=== PATIENT | male | born 1945 | race Caucasian/White ===

== ENCOUNTER 2022-02-15 07:48 | Emergency (ER) | payer MEDICARE, OTHER, SELFPAY ==
[2022-02-15 07:57] VITALS: BP 129/75; PULSE 72; RESP 18; O2SAT 94; BMI 21.5
--- NOTE | 2022-02-15 08:50 | CRLHL7_ITS ---
For Patients: As a result of the Century Cures Act, medical imaging exams and procedure reports are released immediately into your electronic medical record. You may view this report before your referring provider. If you have questions, please contact your health care provider. INDICATION: Lifelong smoker, cough TECHNIQUE: Chest 1 view COMPARISON: None FINDINGS: Cardiovascular and mediastinum: Heart size and vasculature are normal in caliber and appearance. Lungs and pleural spaces: Lungs are clear. No sign of infiltrate or mass. No sign of pleural effusion. No pneumothorax. Bones and soft tissues: No significant findings. IMPRESSION: No acute findings. Dictated by Lucius Bull MD @ 02/15/2022 9:14:28 AM (Electronically Signed)
--- NOTE | 2022-02-15 08:51 | ED.GENADULT ---
HPI - General Adult General Chief complaint: Cough Stated complaint: shortness of breath/mucus in throat/not congestion Time Seen by Provider: 02/15/22 08:18 History of Present Illness HPI narrative: 76-year-old man presenting to the emergency department accompanied by spouse with complaint of cough. He will get these coughing fits that might be productive of colorless mucus occasionally greater or yellow. He has a deposit in the sink for me to examine. It is thick yellowish snot. He has been feeling unwell over the last 4 days. First thing he says to me though is ?it's not a pulmonary problem. It is an ENT issue?. He does not have a relationship with ENT. He notes a history of some chronic postnasal drip. Does not believe he has allergies. He does smoke and has for sounds like life time having been in the [place]. He has not had a fever but a few days ago had some body aches. He does not have any chest pain is not short of breath outside of coughing episodes. He started to have some pain along the rib edge she thinks from coughing. He is unable to sleep and ?running out of gas?. He continues to sleep flat. Has not tried elevating his head. They have tried [id number] treatments in the form of guaifenesin and 1 dose of something that might have contained pseudoephedrine. They have also tried cold and cough daytime medication. He has become allergic now. Spouse on the side mentions to me that his brother is younger brother this last week. They were quite close she says did receive COVID vaccine and has been boosted. He is wondering if there might be a super antihistamine that might be helpful. No facial pain or sinus congestion. More on the side the discusses, emphasizes that contrary to what Mr. Gill were the had been telling me difficulty swallowing pills is a new phenomenon. He does have trouble with swallowing sometimes. Also not exclusive to the last 4 days. That with this coughing he has also been having some upper chest burning which he denied to me today. Related Data Previous Rx's Medication Instructions Recorded benzonatate 200 mg capsule 200 mg PO TID cough #15 caps 02/15/22 prednisone 20 mg tablet 40 mg PO DAILY 5 days #10 tabs 02/15/22 Allergies Allergy/AdvReac Type Severity Reaction Status Date / Time No Known Drug Allergies Allergy Verified 02/15/22 07:57 Review of Systems Status of ROS: Reports: 10 or more systems reviewed and unremarkable except as noted in History and below PFSH PFS Social History Smoking Status: Current every day smoker What tobacco products do you use: cigarettes Smoking packs per day: 0.75 Smoking cigarettes per day: 15.0 Years smoked: 60 Smoking pack-years: 45.00 Do you use any of these nicotine containing products: None Second hand tobacco smoke exposure: No How often do you have a drink containing alcohol: 2-4 times a month How many standard drinks containing alcohol do you have on a typical day: 1 or 2 How often do you have six or more drinks on one occasion: Never AUDIT-C Alcohol total score: 2 Non-prescribed substance use: denies use service: Yes Exam Narrative: Exam Narrative: Pleasant. Talkative. NAD. Lightly bearded Speaking full sentences. Voice is laryngitic Lungs are clear. A few times during interview does go to the sink lean over it and cough some small productive mucus. He is breathing easily otherwise. Oropharynx is hyperemic. There is some irritation of posterior oropharynx but not as one might expect with chronic postnasal drip or allergic related postnasal drip. Neck is supple without LA. Cardiovascular was regular rate and rhythm. Extremities are without edema. Moving all extremities without difficulty. Const: Vital Signs, click to edit/add: Vital Signs - 24 hr 02/15/22 07:57 Pulse Rate [Pulse Oximeter] 72 Respiratory Rate 18 Blood Pressure [Ri ght Upper Arm] 129/75 Pulse Oximetry 94 Oxygen Delivery Me thod Room Air Documenting provider has reviewed patient's vital signs: yes Course Vital Signs Vital signs: Initial Vital Signs Temperature Source Temporal Artery Scan 02/15/22 07:57 Pulse Rate 72 02/15/22 07:57 Pulse Rhythm 02/15/22 07:57 Respiratory Rate 18 02/15/22 07:57 Blood Pressure 129/75 02/15/22 07:57 Blood Pressure Mean 93 02/15/22 07:57 Pulse Oximetry 94 02/15/22 07:57 Oxygen Delivery Method 02/15/22 07:57 Vital Signs Pulse Rate 72 02/15/22 07:57 Respiratory Rate 18 02/15/22 07:57 Blood Pressure 129/75 02/15/22 07:57 Pulse Oximetry 94 02/15/22 07:57 Oxygen Delivery Method 02/15/22 07:57 Pulse Rate 72 02/15/22 07:57 Respiratory Rate 18 02/15/22 07:57 Blood Pressure 129/75 02/15/22 07:57 Pulse Oximetry 94 02/15/22 07:57 Oxygen Delivery Method 02/15/22 07:57 Medical Decision Making MDM Narrative Medical decision making narrative: one view chest x-ray. I did review images. No evidence of acute cardiopulmonary disease. Radiology also reviewed. No mention of any concerning nodule either. COVID negative. Lab Data Labs: Lab Results 02/15/22 Range/Units 08:10 SARS-CoV-2 (PCR) Negative SARS-CoV-2 (Negative) Influenza Type A (PCR) Negative PCR FLU A (Negative) Influenza Type B (PCR) Negative PCR FLU B (Negative) Discharge Plan Discharge Clinical Impression: History of postnasal drip, Cough, Laryngitis Patient Disposition: Home w/ Parent or Adult Condition: Stable Additional Instructions: Continue to focus on hydration. Try to get in your 2-3 L of fluid daily. Might try menthol vapors. Anesthetic throat sprays or lozenges like Chloraseptic or Sucrets [id number] might be helpful. Sucking on ice chips might be helpful. Sleep with head of bed elevated. Pseudoephedrine can be helpful for drying and decongestion. Diphenhydramine can be drying in with a side effect of helping with sleep. So potential sedation and urinary retention as side effects. Return/be seen for persistent increased rate/work of breathing, associated fever, lightheadedness, worsening chest pain. Follow-up if not improved in 7-10 days. Prescriptions: New prednisone 20 mg tablet 40 mg PO DAILY 5 Days Qty: 10 0RF benzonatate 200 mg capsule 200 mg PO TID Qty: 15 0RF Follow Up/Referrals: Farhana Orellana MD [Primary Care Provider] - Stand Alone Forms: [employer] Info Instructions
[2022-02-15 09:02] LABS: PCR FLU A Negative PCR FLU A (Negative); PCR FLU B Negative PCR FLU B (Negative)
[2022-02-15 09:04] LABS: SARS PCR* Negative SARS-CoV-2 (Negative)
== END 2022-02-15 10:11 | disposition home or self-care (01) ==
PROVIDERS: Family Medicine; Emergency Provider Family Medicine; PCP Family Medicine
DX: J04.0 Acute laryngitis (principal)
CPT/HCPCS: 71045; 87631; 99284

== ENCOUNTER 2024-06-27 17:01 | Emergency (ER) | payer MEDICARE, OTHER, SELFPAY ==
[2024-06-27] VITALS (21 sets, daily range): BP systolic 89–125; BP diastolic 54–72; PULSE 73–106; RESP 24–32; TEMP 37.6–38.7; O2SAT 85–93; BMI 20.8
--- OUTSIDE RECORDS SUMMARY | 2024-06-27 17:03 | XMS_ITS | Clinical Summary ---
Author Organization [employer] [facility] Address [place], [place] [address] Care Team Providers Care Controlled Atmospheric Furnace Brazer Name Role Phone Farhana Orellana MD Primary Care Provider + Allergies No known active allergies Medications pseudoephedrine (SUDAFED) 30 mg tablet Take 1 Tablet (30 mg) by mouth every 6 hours if needed for Nasal Congestion. 20 Tablet 2 Active benzonatate (TESSALON) 200 mg capsuleIndicatio ns:Productive cough Take 1 Capsule (200 mg) by mouth 3 times daily if needed for Cough. 30 Capsule 5 5 Active predniSONE (DELTASONE) 50 mg tab tabletIndication s:Productive cough One po QAM as needed symptoms. 10 Tablet 5 Active cholecalciferol (Vitamin D-3) 2,000 unit capsule Take 1 Capsule (2,000 units) by mouth once daily. 0 2 06/27/19 25 Discontinu ed(*Med complete/R egimen complete/L evel of care change) codeine-guaiFENe sin (ROBITUSSIN AC) 10-100 mg/5 mL liquidIndication s:Cough, unspecified type Take 5-10 mL by mouth every 6 hours if needed for Cough. Max dose 60 mL per 24 hrs. 200 mL 3 06/27/19 25 Discontinu ed(*Med complete/R egimen complete/L evel of care change) benzonatate (TESSALON) 200 mg capsuleIndicatio ns:Productive cough Take 1 Capsule (200 mg) by mouth 3 times daily if needed for Cough. 30 Capsule 3 06/27/19 25 Discontinu ed(*Med complete/R egimen complete/L evel of care change) Active Problems Problem Noted Date Diagnosed Date History of colon polyps 08/24/2021 Overview (04/30/2022): -1 5 mm polyp. 07/2021-positive cologuard. Colonoscopy showed 2 21-25 mm polyps. Repeat 01/2022. History of COVID-19 07/23/2021 Overview (07/23/2021): CKD (chronic kidney disease) stage 3, GFR 30-59 ml/min 07/23/2021 Overview (07/23/2021): 1st noted to abnormal kidney function in teen years. 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 [place] [id number] Thang Hickman MD Weak; URI 06/27/2024 Travel from Last 3 Months Immunizations Name Administration Dates Next Due COVID-19 vaccine (Lazaro-J&J) DAGOBERTO VILLAGRAN 1 Pneumococcal Poly,23-Valent (Pneumovax) 07/24/19 22 Pneumococcal conj 13-Valent (Prevnar 13) 016 Tdap 11/14/2012 Family History Medical History Relation Name Comments Good Health Brother Lung cancer Father Cancer Half-Brother 1 throat Other Half-Brother 1 multi sensory atrophy Stroke Mother in her 80's Cancer-breast Sister Relation Name Status Comments Brother Alive Father Half-Brother 1 Alive Half-Brother 2 Alive Half-Brother 3 Alive Half-Brother 4 Alive Mother Sister Alive Social History Tobacco Use Types Packs/Day Years Used Date Smoking Tobacco: Every Day Cigarettes 0.5 40 Smokeless Tobacco: Never Tobacco Cessation:Ready to Q uit: No; Counseling Given: Yes Alcohol Use Standard Drinks/Week Comments Yes 0 (1 standard drink = 0.6 oz pur e alcohol) 3-4 drinks/month PHQ-2 Answer Date Recorded PHQ-2 TOTAL SCORE 0 07/23/2021 Financial Resource Strain Answer Date R ecorded Difficulty of Paying Living Expenses Not on file 06/10/2021 Difficulty of Paying Living Expenses Not on file 06/10/2021 Sex and Gender Information Value Date Recorded Sex Assigned at Not on file Legal Sex Male 7:32 AM HVAC DESIGN MECHANICAL ENGINEER Gender Identity Not on file Sexual Orientation Not on file Obstetrics History Last Filed Vital Signs Vital Sign Reading Time Taken Comments Blood Pressure 101/56 06/27/2024 4:11 PM HVAC DESIGN MECHANICAL ENGINEER Pulse 107 06/27/2024 4:11 PM HVAC DESIGN MECHANICAL ENGINEER Temperature 38 C (100.4 F) 06/27/2024 4:11 PM HVAC DESIGN MECHANICAL ENGINEER Respiratory Rate 28 06/27/2024 4:11 PM HVAC DESIGN MECHANICAL ENGINEER Oxygen Saturation 91% 06/27/2024 4:11 PM HVAC DESIGN MECHANICAL ENGINEER Inhaled Oxygen Concentration - - Weight 67.6 kg (149 lb 1.6 oz) 06/27/2024 4:11 P M HVAC DESIGN MECHANICAL ENGINEER Height 176.5 cm (5' 9.5) 06/29/2022 7:54 AM HVAC DESIGN MECHANICAL ENGINEER Body Mass Index 21.7 06/29/2022 7:54 AM HVAC DESIGN MECHANICAL ENGINEER Plan of Treatment Health Maintenance Due Date Last Done Comments Low Dose CT (for lung CA) ag e 50-80 09/11/1997 Zoster (shingles) series for age 50+ (1 of 2) 09/11/1997 Depression screening for age 12+ 07/23/2022 07/23/2021, 06/10/2021, 06/10/2021, Additional history exists Medicare Wellness for age 65+ 07/24/2022 07/23/2021 RSV vaccine for adults or (1 - 1-dose 75+ series) 09/11/2022 Tetanus booster 11/14/2022 11/14/2012 BMI (ht and wt on same day) for age 18+ 06/29/2023 06/29/2022, 02/19/2022, 07/23/2021, Additional history exists COVID-19 vaccine series ( season) 2024 04/07/2021, 08/02/2020 Influenza for age 65+ 01/22/2024 Tdap Completed 11/14/2012 Hepatitis C screening for ag e 18-79 Completed 07/23/2021 Pneumococcal series for age 50+ Completed , 02/19/2016 Procedures Procedure Name Priority Date/Time Associated Diagnosis Comments ANTI HCV Routine 07/23/2021 11:00 AM HVAC DESIGN MECHANICAL ENGINEER Need for hepatitis C screening test from Last 3 Months or Most Recently Relevant to Health Maintenance Results * ANTI HCV (07/23/2021 11:00 AM HVAC DESIGN MECHANICAL ENGINEER) HEPATITIS C ANTIBODY Non-React paco Non-React paco 07/24/2021 1:10 AM HVAC DESIGN MECHANICAL ENGINEER [email or web address] Comment:Antibodies to HCV no t detected; does not exclude the possibility of exposure to HCV. Blood BLOOD SPECIMEN / Unknown Venipuncture / Unknown 07/23/2021 11:00 AM HVAC DESIGN MECHANICAL ENGINEER 07/23/2021 11:06 AM HVAC DESIGN MECHANICAL ENGINEER us Farhana Orellana MD SEND OUTS Final Re sult [email or web address] [address] [place] [address], [place] from Last 3 Months or Most Recently Relevant to Health Maintenance Insurance [employer] MEDICARE [place] ONLY Care Teams Controlled At[employer]heric Furnace Brazer Relationship Specialty [place] [address] [place] [address] PCP - General Family Practice 06/10/21
--- NOTE | 2024-06-27 17:27 | ED.GENADULT ---
HPI - General Adult General Chief complaint: Fever Stated complaint: low oxygen level, weakness Time Seen by Provider: 06/27/24 17:15 History of Present Illness HPI narrative: Patient here with viral like symptoms starting Tuesday . Hasn't slept or ate well. Started vomiting today. Weakness, cough. Took mucinex and tesslon pearle prior to coming in. 78-year-old man presenting to the emergency department with concern of weakness. Was kind of wobbly but he clearly denies feeling lightheaded or being dizzy. Has been sick over the last 3 days. Fever itch. Vomiting today. Notes a history of rather intense gag reflex and chronic postnasal drip but it sounds the vomiting was unrelated to this. Did try to ever to get some fluid intake of his usual ice tea and that is apparently when he vomited. Treated with Mucinex and some residual Tessalon Perles. Maybe is feeling a little short of breath. He is a 60 year smoker. Does not get regular medical care. Does not have a COPD diagnosis at least. No medications. No abdominal pain although has some right low rib discomfort with coughing intermittently. No chest pain otherwise. Blood pressure is noted to be a little low on arrival at 89/58. Review of records shows that this is not baseline. Next blood pressure though done while I am still interviewing is 112 systolic Related Data Home Medications ?Medication ?Instructions ?Recorded ?Confirmed No Known Home Medications 06/27/24 06/27/24 Allergies Allergy/AdvReac Type Severity Reaction Status Date / Time No Known Drug Allergies Allergy Verified 02/15/22 07:57 Review of Systems Status of ROS: Reports: 6 or more systems reviewed and unremarkable except as noted in History and below [facility] Social History Smoking Status: Current every day smoker What tobacco products do you use: cigarettes Smoking packs per day: 1 Smoking cigarettes per day: 20.0 Years smoked: 60 Smoking pack-years: 60.00 Do you use any of these nicotine containing products: None Second hand tobacco smoke exposure: No How often do you have a drink containing alcohol: 2-4 times a month How many standard drinks containing alcohol do you have on a typical day: 1 or 2 How often do you have six or more drinks on one occasion: Never AUDIT-C Alcohol total score: 2 Non-prescribed substance use: denies use service: Yes Exam Narrative: Exam Narrative: Pleasant. Actually pretty alert. Cranial nerves 2-12 intact. Pupils are equal and brisk. There is some tobacco or smoke staining of his mustache. Oropharynx is sticky. Lungs with diminished breath sounds sound to be clear. Is not labored in breathing. Appears quite comfortable. Heart in elevated rate and regular rhythm. Abdomen is soft and nontender. Extremities are without edema. He appears to be well-perfused. Const: Vital Signs, click to edit/add: Vital Signs - 24 hr 06/27/24 17:12 06/27/24 17:47 06/27/24 18:05 Temperature 101.6 F H Pulse Rate 101 H 93 Pulse Rate [Pulse Oximeter] 95 Respiratory Rate 24 Blood Pressure Blood Pressure [Ri ght Upper Arm] 89/58 L Pulse Oximetry 90 89 86 L Oxygen Delivery Me thod Room Air Room Air Oxygen Flow Rate 06/27/24 18:08 06/27/24 18:09 06/27/24 18:15 Temperature Pulse Rate 97 93 Pulse Rate [Pulse Oximeter] Respiratory Rate Blood Pressure 125/72 Blood Pressure [Ri ght Upper Arm] Pulse Oximetry 85 L 86 L 88 Oxygen Delivery Me thod Room Air Room Air Nasal Cannula Oxygen Flow Rate 1 06/27/24 18:15 06/27/24 18:16 06/27/24 18:30 Temperature 99.7 F H Pulse Rate 93 98 Pulse Rate [Pulse Oximeter] Respiratory Rate Blood Pressure Blood Pressure [Ri ght Upper Arm] Pulse Oximetry 88 93 Oxygen Delivery Me thod Nasal Cannula Nasal Cannula Oxygen Flow Rate 1 1 06/27/24 18:45 06/27/24 18:54 06/27/24 19:00 Temperature Pulse Rate 92 106 H Pulse Rate [Pulse Oximeter] Respiratory Rate 32 H Blood Pressure Blood Pressure [Ri ght Upper Arm] Pulse Oximetry 90 89 Oxygen Delivery Me thod Nasal Cannula Nasal Cannula Oxygen Flow Rate 1 1 06/27/24 19:01 06/27/24 20:01 06/27/24 20:02 Temperature Pulse Rate 97 95 99 Pulse Rate [Pulse Oximeter] Respiratory Rate Blood Pressure 124/71 117/66 Blood Pressure [Ri ght Upper Arm] Pulse Oximetry 89 90 89 Oxygen Delivery Me thod Nasal Cannula Oxygen Flow Rate 1 06/27/24 20:15 06/27/24 20:30 06/27/24 20:45 Temperature Pulse Rate 99 101 H 99 Pulse Rate [Pulse Oximeter] Respiratory Rate Blood Pressure Blood Pressure [Ri ght Upper Arm] Pulse Oximetry 88 88 91 Oxygen Delivery Me thod Oxygen Flow Rate 06/27/24 21:00 06/27/24 21:01 06/27/24 21:15 Temperature Pulse Rate 92 95 94 Pulse Rate [Pulse Oximeter] Respiratory Rate Blood Pressure 102/54 L Blood Pressure [Ri ght Upper Arm] Pulse Oximetry 88 86 L 90 Oxygen Delivery Me thod Oxygen Flow Rate 06/27/24 21:30 Temperature Pulse Rate 73 Pulse Rate [Pulse Oximeter] Respiratory Rate Blood Pressure Blood Pressure [Ri ght Upper Arm] Pulse Oximetry 89 Oxygen Delivery Me thod Oxygen Flow Rate Documenting provider has reviewed patient's vital signs: yes Course Vital Signs Vital signs: Initial Vital Signs Temperature 101.6 F H 06/27/24 17:12 Temperature Source Temporal Artery Scan 06/27/24 17:12 Pulse Rate 95 06/27/24 17:12 Respiratory Rate 24 06/27/24 17:12 Blood Pressure 89/58 L 06/27/24 17:12 Blood Pressure Mean 68 L 06/27/24 17:12 Blood Pressure Position Sitting 06/27/24 17:12 Pulse Oximetry 90 06/27/24 17:12 Oxygen Delivery Method Room Air 06/27/24 17:12 Vital Signs Temperature 101.6 F H 06/27/24 17:12 Pulse Rate 95 06/27/24 17:12 Respiratory Rate 24 06/27/24 17:12 Blood Pressure 89/58 L 06/27/24 17:12 Pulse Oximetry 90 06/27/24 17:12 Oxygen Delivery Method Room Air 06/27/24 17:12 Temperature 99.7 F H 06/27/24 18:16 Pulse Rate 73 06/27/24 21:30 Respiratory Rate 32 H 06/27/24 18:54 Blood Pressure 102/54 L 06/27/24 21:01 Pulse Oximetry 89 06/27/24 21:30 Oxygen Delivery Method Nasal Cannula 06/27/24 19:01 Oxygen Flow Rate 1 06/27/24 19:01 Medications Administered Medications: Discontinued Medications Generic Name Dose Route Start Last Admin Trade Name Freq PRN Reason Stop Dose Admin Albuterol/Ipratropium 1 neb 06/27/24 19:31 06/27/24 19:35 Iprat-Albut 0.5-2.5 Mg/3 Ml Neb IH 06/27/24 19:32 1 neb ONCE ONE Administration Sodium Chloride 1,000 mls @ 1,000 mls/hr 06/27/24 17:45 06/27/24 19:22 0.9 % Sodium Chloride 1000 Ml IV 06/27/24 18:44 Infused .Q1H ONE Infusion Sodium Chloride 1,000 mls @ 1,000 mls/hr 06/27/24 19:53 06/27/24 20:38 0.9 % Sodium Chloride 1000 Ml IV 06/27/24 20:52 Infused .Q1H ONE Infusion Ibuprofen 600 mg 06/27/24 20:14 06/27/24 20:30 Ibuprofen 200 Mg Tablet PO 06/27/24 20:15 600 mg ONCE ONE Administration Methylprednisolone Sodium Succinate 80 mg 06/27/24 19:53 06/27/24 20:02 Methylprednisolone Sod Succ 62.5 Mg/Ml (125) IVP 06/27/24 19:54 80 mg ONCE ONE Administration Ondansetron HCl 4 mg 06/27/24 17:45 06/27/24 18:06 Ondansetron 2 Mg/Ml Inj IVP 06/27/24 17:46 4 mg ONCE ONE Administration Medical Decision Making MDM Narrative Medical decision making narrative: With initial vitals including fever, which I would repeat as initial temporal scan done with stocking cap having been in place, with low blood pressure would have concern about sepsis. Blood culture has been collected. Monitor closely. IV hydration. Ibuprofen. Presuming influenza A contributing given community prevalence and this swab is pending. No abdominal pain to suggest imaging at this time. Pleural effusion? Suspect some combination of COPD exacerbation Checking again oximetry drops to 85% room air. Baseline oximetry or least from visit a couple of years ago looks to be about 94%. Placed on nasal cannula. Chest x-ray independently reviewed by me looks to be unremarkable. Was not ever wheezy on auscultation however was ordered for a DuoNeb. Also given IV Solu-Medrol. Oxygenation did improve to low-mid 90s. Labs with mildly elevated white count. VBG is reassuring/unremarkable. But sodium was 129. Able to locate old records from some years ago where sodium was in the 140s. CRP today at a 0.1 Influenza a positive Reviewing again history it may be the ice tea that drinks regularly might be contributing. Also has not been eating very well over the last few days. Only 1 episode of vomiting this morning. Received a total 2 L of normal saline in the emergency department. Diaphoretic. Fever broke. Remained quite alert and without notable distress during time in the emergency department. No other evidence for sepsis. Ambulated and oxygen saturations did not drop below 90 and ambulated steadily. He would like to go home. I had initially been anticipating admission but this does not appear to be an unreasonable request at this time. Cannot arrange for oxygen or nebulizer at this time. Albuterol inhaler is available in [facility]. Will continue course of prednisone and though it may be a little late, Tamiflu. See patient discharge plan for further discussion I suspect you do have some degree of COPD. It would be a good idea to quit smoking; sounds like you have already done that at least over the last 2 days so keep it up! :) I think following up for pulmonary function testing would be good to direct lung saving/salvaging treatment. Am prescribing Tamiflu and a course of prednisone from [facility]. Albuterol also if you seem to be wheezy. Four days of the prednisone should be sufficient. You do not need to take a course of prednisone tonight but do start the Tamiflu. It would be a good idea to follow-up in a few weeks to recheck labs considering your sodium was newly low. I wonder if your iced tea drinking might be contributing. Consider reconstituting powdered Powerade or Gatorade as an electrolyte drink now at least while you are ill. Return for oxygen saturations at rest persistently 88% or lower, persistent increasing shortness of breath, inability to control fever, repeated vomiting, worsening weakness. Can take up to 600 mg of ibuprofen or up to 850 mg of acetaminophen per dose. This can be combined. Do treat your fever. Medical Records Medical records reviewed: Yes I reviewed the patient's medical records Lab Data Lab results reviewed: Yes I reviewed the patient's lab results Labs: Lab Results 06/27/24 06/27/24 Range/Units 17:33 17:52 WBC 12.38 H (4.50-11.00) K/uL RBC 5.71 (4.30-5.90) m/uL Hgb 16.9 (13.5-17.5) gm/dL Hct 50.0 (37.0-53.0) % MCV 88 (80-100) fL MCH 30 (26-34) pg MCHC 34 (32-36) gm/dL RDW Coeff of Lynn 13.5 (11.5-15.5) % Plt Count 161 (140-440) K/uL Neut % (Auto) 90.1 H (42.0-72.0) % Lymph % (Auto) 2.3 L (20-44) % Elk % (Auto) 7.0 (0.0-11.0) % Eos % (Auto) 0.0 (0.0-7.0) % Baso % (Auto) 0.2 (0.0-3.0) % Neut # (Auto) 11.20 H (1.7-7.0) K/uL Lymph # (Auto) 0.30 L (0.90-2.90) K/uL Elk # (Auto) 0.90 (0.00-0.90) K/UL Eos # (Auto) 0.00 (0.00-0.50) K/uL Baso # (Auto) 0.00 (0.00-0.30) K/uL Abs Immat Gran (auto) 0.00 (0.00-0.30) K/uL Imm/Tot Granulo (auto) 0.4 % VBG pH 7.393 (7.32-7.43) VBG pCO2 40 (40-50) mmHG VBG pO2 31.8 (25-47) mmHG VBG HCO3 24 (21-28) mmol/L Sodium 129 L (135-149) mmol/L Potassium 4.1 (3.6-5.1) mmol/L Chloride 99 (96-114) mmol/L Carbon Dioxide 22 (20-32) mmol/L Anion Gap 8 (7-15) mEq/L BUN 14 (7-30) mg/dL Creatinine 1.4 (0.5-1.5) mg/dL Estimated Creat Clear 40.61 Estimated GFR 52 ml/min Glucose 146 H (60-115) mg/dL Calcium 8.2 L (8.4-10.6) mg/dL C-Reactive Protein 8.1 H (0.5-1.0) mg/dL SARS-CoV-2 (PCR) Negative SARS-CoV-2 (Negative) Influenza Type A (PCR) POSITIVE PCR FLU A A (Negative) Influenza Type B (PCR) Negative PCR FLU B (Negative) RSV (PCR) Negative PCR RSV (Negative) Discharge Plan Discharge Clinical Impression: Influenza A, Hyponatremia, Hypoxia Patient Disposition: Home w/ Parent or Adult Condition: Improved Additional Instructions: I suspect you do have some degree of COPD. It would be a good idea to quit smoking; sounds like you have already done that at least over the last 2 days so keep it up! :) I think following up for pulmonary function testing would be good to direct lung saving/salvaging treatment. Am prescribing Tamiflu and a course of prednisone from [facility]. Albuterol also if you seem to be wheezy. Four days of the prednisone should be sufficient. You do not need to take a course of prednisone tonight but do start the Tamiflu. It would be a good idea to follow-up in a few weeks to recheck labs considering your sodium was newly low. I wonder if your iced tea drinking might be contributing. Consider reconstituting powdered Powerade or Gatorade as an electrolyte drink now at least while you are ill. Return for oxygen saturations at rest persistently 88% or lower, persistent increasing shortness of breath, inability to control fever, repeated vomiting, worsening weakness. Can take up to 600 mg of ibuprofen or up to 850 mg of acetaminophen per dose. This can be combined. Do treat your fever. Activity Level: No Restrictions Discharge Diet: Regular Prescriptions: No Action No Known Home Medications Follow Up/Referrals: Farhana Orellana MD [Primary Care Provider] - Stand Alone Forms: [employer] Info Instructions
[2024-06-27 17:56] LABS: HCO3 VBG 24 mmol/L (21-28); PCO2 VBG 40 mmHG (40-50); PO2 VBG 31.8 mmHG (25-47); pH VBG 7.393 (7.32-7.43)
[2024-06-27 17:57] LABS: Basophils Percent Auto 0.2 % (0.0-3.0); Hemoglobin* 16.9 gm/dL (13.5-17.5); Immature Granulocytes Pct Auto 0.4 %; Lymphocytes Percent Auto 2.3 % (20-44); Mean Corpuscular HGB Conc 34 gm/dL (32-36); Mean Corpuscular Hemoglobin 30 pg (26-34); Mean Corpuscular Volume 88 fL (80-100); Neutrophils Percent Auto 90.1 % (42.0-72.0); Platelet Count* 161 K/uL (140-440); RDW Coefficient of Variation % 13.5 % (11.5-15.5); Red Blood Count 5.71 m/uL (4.30-5.90); White Blood Count* 12.38 K/uL (4.50-11.00)
[2024-06-27 18:02] LABS: Slide Review Reflex No
[2024-06-27] MEDS: 0.9 % SODIUM CHLORIDE 1000 ml 1,000 ML IV ×2 (18:06→20:01)
[2024-06-27] MEDS: ONDANSETRON 2 MG/ML inj 4 MG IVP (18:06)
[2024-06-27 18:08] LABS: Chloride* 99 mmol/L (96-114); Sodium* 129 mmol/L (135-149)
[2024-06-27 18:09] LABS: Potassium* 4.1 mmol/L (3.6-5.1)
[2024-06-27 18:11] LABS: Creatinine* 1.4 mg/dL (0.5-1.5); Est. Creatinine Clearance* 40.61; Estimated Glomerular Filt Rate 52 ml/min
[2024-06-27 18:12] LABS: Anion Gap 8 mEq/L (7-15); Blood Urea Nitrogen* 14 mg/dL (7-30); Calcium* 8.2 mg/dL (8.4-10.6); Carbon Dioxide* 22 mmol/L (20-32); Glucose* 146 mg/dL (60-115)
[2024-06-27 18:13] LABS: PCR FLU A POSITIVE PCR FLU A (Negative); PCR FLU B Negative PCR FLU B (Negative); PCR RSV Negative PCR RSV (Negative); SARS PCR* Negative SARS-CoV-2 (Negative)
[2024-06-27 18:15] LABS: C Reactive Protein* 8.1 mg/dL (0.5-1.0)
--- OUTSIDE RECORDS SUMMARY | 2024-06-27 18:21 | XMS_ITS | Continuity of Care Document ---
Author Organization [facility] Address [address] [address] [place] [address] Phone Care Team Providers Care Rack Maker Name Role Phone No Information Unavailable Unavailable Advance Directives Directive Yes / No Effective Date File Name No Information Encounters Encounter Description Practice Location Reason(s) For Visit Diagnoses Date Provider Providers Copied on Encounter [facility], [address] [address], [place], [place], [id number], tel:[phone] No Information No Information Referring Provider: Farhana Orellana MD R, [address] [facility], [place], [address]. tel:[phone] Family History Family Member Type Diagnosis Age At Onset No Information Payers Payer name Insurance type Covered democrat ID Authoriza tion(s) No Information Social History Type Description Quantity Date Captured Comments Sex Male Smoking Status No Information Chief Complaint And Reason For Visit No Information Reason For Referral Reason For Referral No Information History Of Present Illness Encounter Date Complaint History Of Prese nt Illness No Information Functional Status Date Functional Assessmen t No Information Instructions Date Instruction Additional Infor mation No Information Assessments Type Assessment Date No Information Patient Care Teams Name Effective Dates (start - stop) Status Members No Information
--- OUTSIDE RECORDS SUMMARY | 2024-06-27 18:21 | XMS_ITS | Continuity of Care Document ---
Author Organization [facility] Address [address] [address] [place] [address] Phone Care Team Providers Care Dispatcher Tow Truck Name Role Phone Rodney CROOKS, Nguyen Unavailable Unavailable Allergies, Adverse Reactions, Alerts Substance Reaction Status Criticality No Known Allergies Active No Inform ation Medications Medication Instructions Dosage Effective Dates (start - stop) Status Comments No Drug Therapy Prescribed Procedures Procedure Date Colonoscopy Flex; W/remov Les- Level Iv-surg Path Gross/micro Colonoscopy Flex; W/remov Les- Colonoscopy W/Submucosal Injection Level Iv-surg Path Gross/micro Advance Directives Directive Yes / No Effective Date File Name No Information Encounters Encounter Description Practice Location Reason(s) For Visit Diagnoses Date Provider Providers Copied on Encounter [facility], [address] [address], [place], [place], [id number], [place] tel:[phone] [facility] No Information 3 Rodney CROOKS Nguyen. [address] [facility], [facility] [address], [place], [place], [address] , [place]. [phone] [facility], [address] [address], [place], [place], [address], [place] tel:[phone] [facility] GI Symptoms or Concerns (chief complaint) Residual hemorrhoidal skin tagsBenign neoplasm of sigmoid colonBenign neoplasm of cecumAdenomatous polyp of ascending colonEncounter for screening for malignant neoplasm of colonPersonal history of colonic polyps 2 Rodney Nguyen. [address] [facility], [place], [place], [address] , [place]. [phone] Referring Provider: Referral Self, USE FOR SELF REFERRALS. [facility], [address] [address], [place], [place], [address], [place] tel:[phone] [facility] No Information 2 Rodney Leaim. [address] [facility], [address], [place], [place], [address] , [place]. [phone] [facility], [address] [address], [place], [place], [address], [place] tel:[phone] [facility] GI Symptoms or Concerns (chief complaint) Colorectal polypsExternal hemorrhoidsOther fecal abnormalitiesBenign neoplasm of cecumBenign neoplasm of sigmoid colon 2 Leopoldo Pacheco. [address] [facility], [address], [place], [place], [address] , [place]. [phone] Referring Provider: [place] , [address] [place], [address]. tel:[phone] [facility], [address] [address], [place], [place], [address], [place] tel:[phone] [facility] No Information 2 Hasmukh Pagan. [address] [facility], [address], [place], [place], [address] , [place]. [phone] Family History Family Member Type Diagnosis Age At Onset Sister Problem (finding) malignant neop lasm of breast in first degree relative Father Problem (finding) malignant neoplasm of l john Brother Problem (finding) malignant neoplasm of p harynx Immunizations Vaccine Date Status Comments Pneumovax 23 administered Note: [facility] bi-d irectional interface ; Source: Other Registry SARS-COV-2 (COVID-19) vaccin e, mRNA, spike protein, LNP, preservative free, 100 mcg/0.5mL dose or 50 mcg/0.25mL dose administered Note: [facility] bi -directional interface ; Source: Other Registry SARS-COV-2 (COVID-19) vaccin e, mRNA, spike protein, LNP, preservative free, 100 mcg or 50 mcg dose administered Note: [facility] bi-direct ional interface ; Source: Other Registry SARS-COV-2 (COVID-19) vaccin e, vector non-replicating, recombinant spike protein-Ad26, preservative free, 0.5 mL administered Note: [facility] bi- directional interface ; Source: Other Registry Prevnar 13 administered Note: [facility] bi-d irectional interface ; Source: Other Registry tetanus toxoid, reduced diphtheria toxoid, and acellular pertussis vaccine, adsorbed administered Note: [facility] b i-directional interface ; Source: Other Registry Payers Payer name Insurance type Covered democrat ID Authoriza tion(s) Medicare NGS MB [id number] [facility] [id number] Social History Type Description Quantity Date Captured Comments Sex Male Smoking Status No Information Chief Complaint And Reason For Visit No Information Reason For Referral Reason For Referral No Information Plan Of Treatment Date Type Action Status Referral Ordered: Colonoscopy Appointment date/timeframe: 04/22/2022 ordered History Of Present Illness Encounter Date Complaint History Of Prese nt Illness GI Symptoms or Concerns GI Symptoms or Concerns Functional Status Date Functional Assessmen t No Information Medications Administered Medication Instructions Dosage Effective Dates (start - stop) Status Comments No Drug Therapy Prescribed Instructions Date Instruction Additional Infor mation Hemorrhoids Related to Resid ual hemorrhoidal skin tags Colon Polyps Related to Resid ual hemorrhoidal skin tags Hemorrhoids Related to Resid ual hemorrhoidal skin tags High Fiber Diet Related to Resid ual hemorrhoidal skin tags Colon Cancer Prevention Related to External hemorrhoids Colon Polyps Related to Exter nal hemorrhoids Hemorrhoids Related to Exter nal hemorrhoids High Fiber Diet Related to Exter nal hemorrhoids NSAIDS List Related to Exter nal hemorrhoids Assessments Type Assessment Date No Information Patient Care Teams Name Effective Dates (start - stop) Status Members No Information
--- OUTSIDE RECORDS SUMMARY | 2024-06-27 18:21 | XMS_ITS | Clinical Summary ---
Author Organization [facility] Address [place], [place] [address] Care Team Providers Care Acid Supervisor Name Role Phone Farhana Orellana MD Primary [...] Department Care Team Description 06/27/2024 4:05 PM LICENSED PSYCHOLOGIST MANAGER Office Visit [facility] [address] [facility] [address] [place] [id number] Thang Hickman MD Weak; URI 06/27/2024 Travel [...] on file Legal Sex Male 7:32 AM LICENSED PSYCHOLOGIST MANAGER Gender Identity Not on file Sexual Orientation Not on file Obstetrics History Last Filed Vital Signs Vital Sign Reading Time Taken Comments Blood Pressure 101/56 06/27/2024 4:11 PM LICENSED PSYCHOLOGIST MANAGER Pulse 107 06/27/2024 4:11 PM LICENSED PSYCHOLOGIST MANAGER Temperature 38 C (100.4 F) 06/27/2024 4:11 PM LICENSED PSYCHOLOGIST MANAGER Respiratory Rate 28 06/27/2024 4:11 PM LICENSED PSYCHOLOGIST MANAGER Oxygen Saturation 91% 06/27/2024 4:11 PM LICENSED PSYCHOLOGIST MANAGER Inhaled Oxygen Concentration - - Weight 67.6 kg (149 lb 1.6 oz) 06/27/2024 4:11 P M LICENSED PSYCHOLOGIST MANAGER Height 176.5 cm (5' 9.5) 06/29/2022 7:54 AM LICENSED PSYCHOLOGIST MANAGER Body Mass Index 21.7 06/29/2022 7:54 AM LICENSED PSYCHOLOGIST MANAGER Plan of Treatment Health Maintenance Due Date [...] Comments ANTI HCV Routine 07/23/2021 11:00 AM LICENSED PSYCHOLOGIST MANAGER Need for hepatitis C screening test from Last 3 Months or Most Recently Relevant to Health Maintenance Results * ANTI HCV (07/23/2021 11:00 AM LICENSED PSYCHOLOGIST MANAGER) HEPATITIS C ANTIBODY Non-React paco Non-React paco 07/24/2021 1:10 AM LICENSED PSYCHOLOGIST MANAGER [facility] Comment:Antibodies to HCV no t detected; does not exclude the possibility of exposure to HCV. Blood BLOOD SPECIMEN / Unknown Venipuncture / Unknown 07/23/2021 11:00 AM LICENSED PSYCHOLOGIST MANAGER 07/23/2021 11:06 AM LICENSED PSYCHOLOGIST MANAGER us Farhana Orellana MD SEND OUTS Final Re sult [facility] [address] [place] [address], [place] from Last 3 Months or Most Recently Relevant to Health Maintenance Insurance [employer] MEDICARE [place] ONLY Care Teams Acid Supervisor Relationship Specialty [place] [address] [place] [address] PCP - General Family Practice 06/10/21
--- OUTSIDE RECORDS SUMMARY | 2024-06-27 18:21 | XMS_ITS | Continuity of Care Document ---
Author Organization [facility] Address [address] [address] [place] [address] Care Team Providers Care Solar Applications Development Engineer Name Role Phone [place], [place] Unavailable Unav ailable Procedures Procedure Date Colono Pt Doc Pt W/o Advance Directives Directive Yes / No Effective Date File Name No Information Encounters Encounter Description Practice Location Reason(s) For Visit Diagnoses Date Provider Providers Copied on Encounter [facility], [address] [address], [place], [place], [id number], [facility] No Information [facility]. [address] [address], [place], [place], [address], . tel:[phone] Referring Provider: Patrick Stevens MD, [address] [facility] [address], [place], [address] . tel:[phone] Family History Family Member Type Diagnosis Age At Onset No Information Payers Payer name Insurance type Covered libertarian ID Authoriza tion(s) Medicare NGS MB [id number] [facility] [id number] Social History Type Description Quantity Date Captured [...]
[2024-06-27] MEDS: IPRAT-ALBUT 0.5-2.5 MG/3 ML NEB 1 NEB IH (19:35)
[2024-06-27] MEDS: METHYLPREDNISOLONE SOD SUCC 62.5 MG/ML (125) 80 MG IVP (20:02)
[2024-06-27] MEDS: IBUPROFEN 200 MG TABLET 600 MG PO (20:30)
== END 2024-06-27 21:50 | disposition home or self-care (01) ==
PROVIDERS: Emergency Provider Family Medicine; PCP Family Medicine
DX: J10.1 Influenza due to other identified influenza virus with other respiratory manifestations (principal); E87.1 Hypo-osmolality and hyponatremia; E86.0 Dehydration
CPT/HCPCS: 36415; 71046; 80048; 82803; 85025; 86140; 87040; 87631; 96374; 96375; 99284; A9270; J2405; J2919; J7030